=== PATIENT | female | born 1960 | race Caucasian/White ===

== ENCOUNTER 2018-10-05 09:35 | Day surgery (SDC) | payer BC ==
--- NOTE | 2018-10-05 05:49 | History and Physical - Ferro ---
CHIEF COMPLAINT/HISTORY OF CHIEF COMPLAINT: This patient presents with a history of intractable lumbar radiculopathy. Due to the failure of therapy, a spinal cord stimulator trial was conducted on 09/22/18 with 75-85% pain control. Due to the failure of all therapies and the success of the trial, she presents today for implantation of a permanent system. PAST MEDICAL HISTORY: Noncontributory. PAST SURGICAL HISTORY: Hysterectomy. MEDICATIONS ON ADMISSION: List to be provided. ALLERGIES: None. FAMILY/PSYCHOSOCIAL HISTORY: Social history - Social alcohol and caffeine. Family history - Noncontributory. SYSTEMS REVIEW: The patient is appropriate in no acute distress. The remainder of the systems review is positive for degenerative arthritis. PHYSICAL EXAMINATION: Height is 5'6", weight is 190. No vital signs. HEENT: Within normal limits. LUNGS: Clear. HEART: Rapid and regular. ABDOMEN: Nontender. MUSCULOSKELETAL: Examination of the musculoskeletal system shows diffuse tenderness throughout the lumbar spine. Range of motion produces pain circumferentially around both legs. There is no obvious or significant motor or sensory field abnormalities. Ambulation - No assistive device utilized. NEUROLOGIC: Cranial nerves are intact. IMPRESSION: LUMBAR RADICULOPATHY, ICD-10 CODE M54.16 AND M54.17. PLAN: The patient is here for implantation of a permanent spinal cord stimulator after a successful trial and failure of all other therapies. The procedure will be considered outpatient, although an overnight stay will be evaluated. JOB NUMBER: [id number] MTDD
[~2018-10-05 09:35] MED LIST: ACETAMINOPHEN 1,000 MG/100 ML BTL IV ONE; CEFAZOLIN 2 Gram 2 GM/50 ML BAG IVPB ONE; FAMOTIDINE 20MG TABLET PO ONE; MECLIZINE 25 MG TABLET PO ONE; METOCLOPRAMIDE 10 MG TABLET PO ONE
[2018-10-05] MEDS ORDERED: LIDOCAINE 1% W/EPI 1:200,000 MPF 30ML SQ ONE (09:36)
[2018-10-05] MEDS ORDERED: 0.9 % SODIUM CHLORIDE 10 ML VIAL IVP ONE (09:36)
[2018-10-05] MEDS ORDERED: MIDAZOLAM HCL 2MG/2ML VIAL IV ONE (09:36)
[2018-10-05] MEDS ORDERED: KETOROLAC 30 MG/ML VIAL IVP ONE (09:36)
[2018-10-05] MEDS ORDERED: KETAMINE HCL 100MG/1ML VIAL INJ ONE (09:36)
[2018-10-05] MEDS ORDERED: FENTANYL PF 100MCG/2ML VIAL IV ONE (09:36)
[2018-10-05] MEDS ORDERED: CEFAZOLIN 1G VIAL IM ONE (09:36)
[2018-10-05] MEDS ORDERED: LIDOCAINE 2% MDV (20MG/ML) 20ML VIAL IV ONE (09:36)
[2018-10-05] MEDS ORDERED: BUPIVACAINE 0.5% W/EPI MPF 30 ML VIAL IVP ONE (09:36)
[2018-10-05] MEDS ORDERED: PROPOFOL 10 MG/ML VIAL IV ONE (09:36)
--- NOTE | 2018-10-07 14:29 | RADIOLOGY REPORT ---
EXAM: THORACOLUMBAR SPINE, ONE VIEW HISTORY: SPINAL NERVE STIMULATOR IMPLANT. TECHNIQUE: A single AP portable supine view of the spine was obtained including the majority of the thoracic spine and the lumbar spine through the L3 -L4 disk. Comparison: Intraoperative radiographs of the spine dated 10/05/18. FINDINGS: A dual lead interspinal stimulator is in place. One of the leads appears to enter the spinal canal at the L1-L2 level while the other at the T12- L1 level. The lead tips are at the T7 level. The leads are connected to a generator projecting at the level of the right flank. No acute fracture is seen. No lytic or blastic bone lesion. There are degenerative disk/end plate changes throughout the thoracic spine. IMPRESSION: DUAL LEAD INTERSPINAL STIMULATOR IN PLACE, DISCUSSED ABOVE. JOB NUMBER: [id number] AND [id number] [facility]
--- NOTE | 2018-10-07 15:41 | Operative Note ---
DATE: 10/05/2018. PRIMARY CARE PHYSICIAN: Mayi Tony M.D. PREOPERATIVE DIAGNOSIS: LUMBAR RADICULOPATHY, ICD-10 CODE M54.16 AND M54.17. ANESTHESIA: Local sedation. ANESTHESIA PROVIDER: Patrizia Bunhc CRNA. PROCEDURES: 1. Fluoroscopically guided left epidural access at T12-L1. Placement of spinal cord stimulator lead 1, a [employer] 16 with 16 electrodes, positioned left at T7. 2. Fluoroscopically guided left epidural access at T11-12. Placement of spinal cord stimulator lead 2, a [employer] 16 with 16 electrodes, positioned right T7. 3. Complex programming of lead 1 over 20 minutes followed by complex programming of lead 2 over 20 minutes. 4. Incision, subcutaneous dissection, and anchoring of leads 1 and 2 to the supraspinous fascia with a Spazzles locking anchor and nonabsorbable suture. 5. Incision, subcutaneous dissection, and creation of subcutaneous pouch at the right posterior gluteal margin for placement of generator identified as a Spazzles programmable rechargeable generator. 6. Tunneling between pouches with placement of the external portions of lead 1 and lead 2 into generator pouch, each lead interfaced to the generator. 7. Placement of generator into pouch. Placement of leads into the pouch. 8. Closure of both incisions using Stratafix suture; #2-0 for the fascia and #3 -0 for the skin. Dermabond closure over each incision. 9. Complex recovery room programming of the internal generator, WaveWriter, for 20 minutes, re-establishing stimulation of pain control to all of the appropriate areas. SURGEON: Nadir Reaves D.O. INDICATIONS: This patient presents with a history of intractable lumbar radiculopathy. Due to the failure of therapies, a spinal cord stimulator trial was conducted with 75 to 85 percent pain control. Due to the failure of therapy and the success of the trial, the patient presents today for implantation of a permanent system. DESCRIPTION OF PROCEDURE: Intravenous lines, vital sign monitoring, and intravenous sedation. Prepped and draped with sterile technique. Under imaging the epidural interspace left at T11-12 and 12-1 were both marked and infiltrated with local. Using two separate curved access Epimed needles with loss of resistance the space was accessed atraumatically. At 12-1, spinal cord stimulator lead 1, a [employer] 16 with 16 electrodes, was advanced and positioned left of midline at T7. With the epidural access at 11- 12 using the same technique, spinal cord stimulator lead 2, a [employer] 16 with 16 electrodes was positioned right of the midline at T7. Complex programming of lead 1 over 20 minutes was followed by complex programming of lead 2 over 20 minutes. This resulted in complete patterns of stimulation across the back and into the hips and legs. The patient indicated we were in all of the areas of the pain. She was then given the options to implant, continue to program, or remove. She opted to implant. The questions were repeated with the same response. She was then resedated. The skin above and below both needles was then infiltrated with local. An incision was made, and subcutaneous dissection was conducted through the supraspinous fascia. Each lead was then anchored to the supraspinous fascia with a Spazzles locking anchor and nonabsorbable suture. At the right posterior gluteal margin, the site picked by the patient for the generator, the skin was infiltrated. An incision was made and subcutaneous dissection was conducted to form a pouch of suitable size and depth for the generator, a [employer]azz[employer] programmable rechargeable WaveWriter generator. A tunneling tool was used to carry the leads into the generator pouch, and then each lead was interfaced to the generator. Antibiotic irrigation and Bovie for hemostasis. The generator was placed into the pouch and the leads were placed into their own pouch. Both incisions were then closed using Stratafix suture; # 2-0 for the fascia and #3-0 for the skin. A Dermabond closure was then used to approximate the edges of both wounds. She was then transported to the recovery room stable with no side effects from the procedure or the sedation. When fully awake and alert, complex programming of the generator was performed in the recovery room over 20 minutes, re-establishing stimulation to all of the appropriate areas. Secondary to her request to go home, she was prepared for discharge. DISCHARGE INSTRUCTIONS: 1. Although the Dermabond will allow showering, she should not sit in water. No sitting in tubs. 2. Standard medications to be resumed including the antibiotic Levaquin 500 mg once a day for 7 more days. 3. The office will contact the patient in the next 24 to 48 hours to set up a time in the next seven to ten days for us to evaluate her sites. 4. All other instructions were provided including numbers to contact with problems. 5. Until she is seen again, she should limit bend, lift, push, and pull. JOB NUMBER: [id number] cc: Tree Marshall
== END 2018-10-05 14:20 | disposition home or self-care (01) ==
LOC: SUR 09:35
PROVIDERS: ATTEND Pain Medicine Interventional Pain Medicine
DX: M54.16 Radiculopathy, lumbar region (principal); M54.17 Radiculopathy, lumbosacral region
CPT/HCPCS: 72020; 95972; C1820; C1883; J0690; J1885; J3490

== ENCOUNTER 2019-04-12 07:13 | Day surgery (SDC) | payer BC ==
--- NOTE | 2019-04-12 06:39 | History and Physical - Ferro ---
CHIEF COMPLAINT/HISTORY OF CHIEF COMPLAINT: This patient presents with a history of an intractable lumbar radiculopathy with a spinal cord stimulator internal generator placed 10/05/18. Although initially stimulation patterns were appropriate over the last number of months this patient has not been able to achieve appropriate stimulation patterns despite multiple reprogramming's. She has requested the system be removed. PAST MEDICAL HISTORY: Noncontributory. PAST SURGICAL HISTORY: Hysterectomy and stimulator implant. MEDICATIONS ON ADMISSION: List to be provided. ALLERGIES: None. FAMILY/PSYCHOSOCIAL HISTORY: Social history - Social alcohol and caffeine. SYSTEMS REVIEW: The patient is appropriate in no acute distress. The remainder of the systems review is noncontributory. PHYSICAL EXAMINATION: Height is 5'6", weight is 190. No vital signs. HEENT: Within normal limits. LUNGS: Clear. HEART: Rapid and regular. ABDOMEN: Nontender. MUSCULOSKELETAL: Examination of the musculoskeletal system shows the two leads approximating T12-L1, generator right posterior gluteal margin. All incisions are intact. NEUROLOGIC: Cranial nerves are intact. IMPRESSION: 1. LUMBAR RADICULOPATHY, ICD-10 CODE M54.16 AND M54.17. 2. TWO LEAD SPINAL CORD STIMULATOR AND INTERNAL GENERATOR, NONFUNCTIONAL. PLAN: The patient is here for removal of the two leads and internal generator on an outpatient basis. JOB NUMBER: [id number] [facility]
[~2019-04-12 07:13] MED LIST changes: -ACETAMINOPHEN 1,000 MG/100 ML BTL IV ONE; +ACETAMINOPHEN 1,000 MG/100 ML BTL IVPB ONE
[2019-04-12] MEDS ORDERED: FENTANYL PF 100MCG/2ML VIAL IV ONE (07:14)
[2019-04-12] MEDS ORDERED: CEFAZOLIN 1G VIAL IVP ONE (07:14)
[2019-04-12] MEDS ORDERED: LIDOCAINE 2% MDV (20MG/ML) 20ML VIAL IV ONE (07:14)
[2019-04-12] MEDS ORDERED: *PACU ONLY* KETAMINE HCL 10 MG/ML (20ML) VIAL IV ONE (07:14)
[2019-04-12] MEDS ORDERED: MIDAZOLAM HCL 2MG/2ML VIAL IV ONE (07:14)
[2019-04-12] MEDS ORDERED: PROPOFOL 10 MG/ML VIAL IV ONE (07:14)
[2019-04-12] MEDS ORDERED: RINGERS SOLUTION,LACTATED 1,000 ML IV ONE (08:20)
[2019-04-12] MEDS ORDERED: LIDOCAINE 1% W/EPI 1:100,000 MDV 20 ML VIAL SQ ONE (09:44)
[2019-04-12] MEDS ORDERED: BUPIVACAINE 0.5% W/EPI MPF 30 ML VIAL SQ ONE (09:44)
--- NOTE | 2019-04-14 11:11 | Operative Note ---
DATE OF SURGERY: 04/12/2019 PREOPERATIVE DIAGNOSES: 1. Lumbar radiculopathy, ICD10 code M54.16 and M54.17. 2. Spinal cord stimulator 2 leads internal generator subcutaneous nonfunctional. OPERATION: 1. Fluoroscopic-guided incision, subcutaneous dissection, and removal of 2 spinal cord stimulators implanted. 2. Incision, subcutaneous dissection, and removal of internal pulse generator implanted. SURGEON: Nadir Reaves DO ANESTHESIA: Local with sedation. ANESTHESIA PROVIDER: Jacob Lane INDICATION: This patient presents with a history of intractable lumbar radiculopathy. A 2-lead spinal cord stimulator internal generator had been placed with initial excellent results; however, over time and with progressive changes in her pain pattern, we were unable to keep up with the pain and despite multiple conservative reprogramming efforts, the system began to fail. She was given the option to revise or remove. She opted to remove. PROCEDURE: Intravenous line, vital signs monitoring, IV sedation. Prepped and draped with sterile technique. Under imaging, the incision midline for the 2 spinal cord stimulators was infiltrated with local. Under imaging, the anchor was identified. Skin infiltrated, incision made, subcutaneous dissection was conducted to the leads and anchors. The anchors and leads were removed, all retaining suture was removed intact. At the right posterior gluteal margin generator pouch, skin infiltrated, incision made, and subcutaneous dissection was conducted to the generator pouch. The generator pouch was opened and the lead extensions were also removed. Antibiotic irrigation and Bovie for hemostasis at all sites. The incisions were then closed using Stratafix suture, 2-0 fascia, 3-0 skin, Dermabond closure. She was transported to the recovery room stable. No side effects from the procedure or sedation. She will be monitored and prepared for discharge home. DISCHARGE INSTRUCTIONS: 1. Sites to remain clean and dry. No showering or bathing in any way that would disrupt dressings. If it happens, contact the clinic. 2. Standard medication resumed including the antibiotic Levaquin 500 mg once a day for 14 days. 3. Office to contact the patient at home to set up a time in the next 7-10 days to evaluate the sites. Until then, she is to keep her activities low. All other instructions provided, numbers to contact if problems given. She can shower but not sit in water. She will complete the antibiotic, which has been called by the hospital. ALEXANDRE
== END 2019-04-12 10:35 | disposition home or self-care (01) ==
LOC: SUR 07:13
PROVIDERS: ATTEND Pain Medicine Interventional Pain Medicine
DX: T85.192D Other mechanical complication of implanted electronic neurostimulator of spinal cord electrode (lead), subsequent encounter (principal); M54.17 Radiculopathy, lumbosacral region
CPT/HCPCS: 63661; 63688; 00300; J3010; J0690; J7120